=== PATIENT | female | born 1995 | race Caucasian/White ===

== ENCOUNTER 2020-06-07 22:00 | Emergency (ER) | payer MEDICAID, OTHER ==
[~2020-06-07] VITALS: Ht 170.2 cm; Wt 95.0 kg
--- NOTE | 2020-06-07 22:14 | NUR ---
PT BIBA FROM WORK, STATES WHILE SITTING AT DESK SHE DEVELOPED "PALPATATIONS C A POPPING IN HER BACK C DEEP BREATH". ONSET X 1HR. PT STATES SIMILIAR EPISODE 3YRS AGO BUT WAS NEVER SEEN BY PCP. PT RESTING ON CART, NAD. RR EVEN NON LABORED. TBS. EKG COMPLETED. ON ALL MONITORS.
[2020-06-07 22:37] LABS: BASOPHILS % (AUTO) 1 % (0-1); EOSINOPHILS % (AUTO) 3 % (1-7); LYMPHOCYTES % (AUTO) 31 % (22-44); MEAN CORPUSCULAR HEMOGLOBIN 29.7 pg (27.0-34.8); MEAN CORPUSCULAR HGB CONC 33.9 g/dL (32.4-35.8); MONOCYTES % (AUTO) 9 % (2-9); NEUTROPHILS % (AUTO) 58 % (42-75); PLATELET COUNT 343 x10^3/uL (130-400); RED BLOOD COUNT 4.83 x10^6/uL (3.82-5.3); RED CELL DISTRIBUTION WIDTH 13.4 % (9.6-15.2)
[2020-06-07 22:39] LABS: MD NO
--- NOTE | 2020-06-07 22:50 | NUR ---
RBS 121. AMBUALTORY TO RESTROOM FOR URINE SAMPLE.
[2020-06-07 22:51] LABS: ALANINE AMINOTRANSFERASE 57 U/L (12-78); ALBUMIN 3.6 g/dL (3.4-5.0); ANION GAP 8 mmol/L (5-15); CALCIUM 9.8 mg/dL (8.5-10.1); CHLORIDE 108 mmol/L (98-107); CREATININE 0.92 mg/dL (0.55-1.02)
[2020-06-07 23:01] LABS: ALKALINE PHOSPHATASE 38 U/L (45-117); BILIRUBIN,TOTAL 0.2 mg/dL (0.2-1.0); TOTAL PROTEIN 7.6 g/dL (6.4-8.2)
[2020-06-07 23:10] LABS: MICROSCOPIC NOT IND
[2020-06-07 23:21] LABS: FREE T4 (FREE THYROXINE) 0.91 ng/dL (0.76-1.46)
[2020-06-08 00:33] VITALS: BP 133/84
== END 2020-06-08 00:36 | disposition home or self-care (01) ==
LOC: ED 22:30
DX: R07.89 Other chest pain (principal); R00.2 Palpitations; R42 Dizziness and giddiness; R10.32 Left lower quadrant pain
CPT/HCPCS: 74018; 80053; 81003; 82962; 83690; 83735; 84439; 84443; 84703; 85025; 93005; 99285